=== PATIENT | male | born 1985 | race Caucasian/White ===

== ENCOUNTER 2018-06-21 23:06 | Inpatient (IN) | payer BC ==
[2018-06-22] MEDS ORDERED: IBUPROFEN 600 MG TAB PO STA (00:39)
[2018-06-22] MEDS ORDERED: SODIUM CHLORIDE 0.9% 1,000 ML IV STA ×2 (00:39)
[2018-06-22] MEDS ORDERED: ACETAMINOPHEN TAB 500 MG TAB PO STA (00:39)
[2018-06-22] MEDS ORDERED: cefTRIAXone 2,000 MG in SODIUM CHLORIDE 0.9% 100 ML IVPB STA (00:40)
[2018-06-22] MEDS ORDERED: VANCOMYCIN IV PER PHARMACY 1 EACH MISC MISCELLANE PRN (00:40)
--- NOTE | 2018-06-22 00:52 | ED ---
Skin/Abscess/FB HPI - General Chief complaint: Skin/Abscess/Foreign Body Stated complaint: Infection Time Seen by Provider: 06/22/18 00:32 Source: patient, RN notes reviewed, old records reviewed Mode of arrival: ambulatory Limitations: no limitations - History of Present Illness Initial comments: This is a 32-year-old male to the ER for evaluation presents today for evaluation regards to severe left middle finger pain, patient has no injury or trauma hand, he woke up with infection today some chills no significant fevers. Denies any pain left index finger with vasculitis and blood poisoning kind of extending up left arm. No medical history significant for immune deficiency or diabetes. MD complaint: other (Patient is significant left middle finger infection with surrounding edema, erythema) -: days(s) (1) Tetanus Up to Date: yes Location: L hand Severity scale (1-10): 9 Quality: aching Consistency: constant Improves with: none Worsens with: none Context: none Associated symptoms: chills Treatments Prior to Arrival: none - Related Data Home Medications Medication Instructions Recorded Confirmed No Known Home Medications 12/04/14 06/22/18 Allergies Allergy/AdvReac Type Severity Reaction Status Date / Time No Known Allergies Allergy Verified 06/22/18 08:22 Review of Systems ROS Statement: Those systems with pertinent positive or pertinent negative responses have been documented in the HPI. ROS Other: All systems not noted in ROS Statement are negative. Past Medical History Past Medical History: No Reported History Additional Past Medical History / Comment(s): Shingles History of Any Multi-Drug Resistant Organisms: None Reported Past Surgical History: No Surgical Hx Reported Additional Past Surgical History / Comment(s): Reconstructive jaw sx Past Psychological History: No Psychological Hx Reported Smoking Status: Never smoker Past Alcohol Use History: Occasional Past Drug Use History: None Reported - Past Family History Father Family Medical History: Hypertension Mother Family Medical History: Hypertension Additional Family Medical History / Comment(s): both maternal and paternal grandfathers have a history of coronary artery disease and cancer General Exam - General Exam Comments Initial Comments: Patient does have positive Knaval signs left middle finger Limitations: no limitations General appearance: alert, in no apparent distress Head exam: Present: atraumatic, normocephalic, normal inspection Eye exam: Present: normal appearance, PERRL, EOMI. Absent: scleral icterus, conjunctival injection, periorbital swelling ENT exam: Present: normal exam, mucous membranes moist Neck exam: Present: normal inspection. Absent: tenderness, meningismus, lymphadenopathy Respiratory exam: Present: normal lung sounds bilaterally. Absent: respiratory distress, wheezes, rales, rhonchi, stridor Cardiovascular Exam: Present: regular rate, normal rhythm, normal heart sounds. Absent: systolic murmur, diastolic murmur, rubs, gallop, clicks GI/Abdominal exam: Present: soft, normal bowel sounds. Absent: distended, tenderness, guarding, rebound, rigid Extremities exam: Present: normal inspection, full ROM, normal capillary refill. Absent: tenderness, pedal edema, joint swelling, calf tenderness Back exam: Present: normal inspection Neurological exam: Present: alert, oriented X3, CN II-XII intact Psychiatric exam: Present: normal affect, normal mood Skin exam: Present: warm, dry, intact, normal color. Absent: rash Course Vital Signs 06/22/18 06/22/18 06/22/18 00:11 01:12 02:50 Temperature 98.8 F 98.9 F Pulse Rate 105 H 95 90 Pulse Rate [ Pulse Oximetery ] Respiratory 18 18 17 Rate Blood Pressure 118/70 115/74 115/69 O2 Sat by Pulse 99 98 94 L Oximetry 06/22/18 03:10 Temperature Pulse Rate Pulse Rate [ 88 Pulse Oximetery ] Respiratory 16 Rate Blood Pressure O2 Sat by Pulse Oximetry - Reevaluation(s) Reevaluation #1: 06/22/18 01:06 Medical record is reviewed Patient has improved currently with pain control Medical Decision Making - Medical Decision Making 32 male the ER for evaluation significant finger cellulitis of possible flexor tenosynovitis, patient be admitted for IV antibiotics and orthopedic consultation - Lab Data Result diagrams: 06/22/18 01:01 06/22/18 01:01 Lab Results 06/22/18 06/22/18 06/22/18 Range/Units 01:01 01:01 01:01 WBC 15.9 H (3.8-10.6) k/uL RBC 5.21 (4.30-5.90) m/uL Hgb 15.8 (13.0-17.5) gm/dL Hct 45.4 (39.0-53.0) % MCV 87.3 (80.0-100.0) fL MCH 30.3 (25.0-35.0) pg MCHC 34.7 (31.0-37.0) g/dL RDW 12.7 (11.5-15.5) % Plt Count 225 (150-450) k/uL Neutrophils % 87 % Lymphocytes % 5 % Monocytes % 7 % Eosinophils % 0 % Basophils % 0 % Neutrophils # 13.8 H (1.3-7.7) k/uL Lymphocytes # 0.8 L (1.0-4.8) k/uL Monocytes # 1.1 H (0-1.0) k/uL Eosinophils # 0.0 (0-0.7) k/uL Basophils # 0.0 (0-0.2) k/uL PT (9.0-12.0) sec INR (<1.2) APTT (22.0-30.0) sec Sodium 139 (137-145) mmol/L Potassium 3.9 (3.5-5.1) mmol/L Chloride 104 (98-107) mmol/L Carbon Dioxide 23 (22-30) mmol/L Anion Gap 12 mmol/L BUN 17 (9-20) mg/dL Creatinine 0.83 (0.66-1.25) mg/dL Est GFR (CKD-EPI)AfAm >90 (>60 ml/min/1.73 sqM) Est GFR (CKD-EPI)NonAf >90 (>60 ml/min/1.73 sqM) Glucose 104 H (74-99) mg/dL Plasma Lactic Acid Devaughn (0.7-2.0) mmol/L Calcium 9.8 (8.4-10.2) mg/dL Phosphorus 2.6 (2.5-4.5) mg/dL Magnesium 1.9 (1.6-2.3) mg/dL Total Bilirubin 1.8 H (0.2-1.3) mg/dL AST 24 (17-59) U/L ALT 20 L (21-72) U/L Alkaline Phosphatase 56 (38-126) U/L Total Creatine Kinase 163 (55-170) U/L CK-MB (CK-2) 0.5 (0.0-2.4) ng/mL CK-MB (CK-2) Rel Index 0.3 Troponin I <0.012 (0.000-0.034) ng/mL Total Protein 8.3 H (6.3-8.2) g/dL Albumin 5.1 H (3.5-5.0) g/dL 06/22/18 06/22/18 Range/Units 01:01 02:20 WBC (3.8-10.6) k/uL RBC (4.30-5.90) m/uL Hgb (13.0-17.5) gm/dL Hct (39.0-53.0) % MCV (80.0-100.0) fL MCH (25.0-35.0) pg MCHC (31.0-37.0) g/dL RDW (11.5-15.5) % Plt Count (150-450) k/uL Neutrophils % % Lymphocytes % % Monocytes % % Eosinophils % % Basophils % % Neutrophils # (1.3-7.7) k/uL Lymphocytes # (1.0-4.8) k/uL Monocytes # (0-1.0) k/uL Eosinophils # (0-0.7) k/uL Basophils # (0-0.2) k/uL PT 11.2 (9.0-12.0) sec INR 1.2 H (<1.2) APTT 26.0 (22.0-30.0) sec Sodium (137-145) mmol/L Potassium (3.5-5.1) mmol/L Chloride (98-107) mmol/L Carbon Dioxide (22-30) mmol/L Anion Gap mmol/L BUN (9-20) mg/dL Creatinine (0.66-1.25) mg/dL Est GFR (CKD-EPI)AfAm (>60 ml/min/1.73 sqM) Est GFR (CKD-EPI)NonAf (>60 ml/min/1.73 sqM) Glucose (74-99) mg/dL Plasma Lactic Acid Devaughn 1.3 (0.7-2.0) mmol/L Calcium (8.4-10.2) mg/dL Phosphorus (2.5-4.5) mg/dL Magnesium (1.6-2.3) mg/dL Total Bilirubin (0.2-1.3) mg/dL AST (17-59) U/L ALT (21-72) U/L Alkaline Phosphatase (38-126) U/L Total Creatine Kinase (55-170) U/L CK-MB (CK-2) (0.0-2.4) ng/mL CK-MB (CK-2) Rel Index Troponin I (0.000-0.034) ng/mL Total Protein (6.3-8.2) g/dL Albumin (3.5-5.0) g/dL - EKG Data -: EKG Interpreted by Me (EKG shows sinus tachycardia rate 104, [place] 140, QRS 96, QTc 428) - Radiology Data Radiology results: report reviewed (X-ray hand is negative), image reviewed Disposition Clinical Impression: Finger infection Narrative: ro FlexorTenosynovitis Disposition: ADMITTED IP TO THIS [facility] Condition: Fair Is patient prescribed a controlled substance at d/c from ED?: No
[2018-06-22] MEDS ORDERED: VANCOMYCIN 1,750 MG in SODIUM CHLORIDE 0.9% 500 ML 500 ML IVPB ONE (01:00)
[2018-06-22 01:51] LABS: ALT 20 U/L (21-72); AST 24 U/L (17-59); Albumin 5.1 g/dL (3.5-5.0); Alkaline Phosphatase 56 U/L (38-126); Anion Gap 12 mmol/L; Blood Urea Nitrogen 17 mg/dL (9-20); Calcium 9.8 mg/dL (8.4-10.2); Carbon Dioxide 23 mmol/L (22-30); Chloride 104 mmol/L (98-107); Glucose 104 mg/dL (74-99); Magnesium 1.9 mg/dL (1.6-2.3); Phosphorus 2.6 mg/dL (2.5-4.5); Potassium 3.9 mmol/L (3.5-5.1); Sodium 139 mmol/L (137-145); Total Bilirubin 1.8 mg/dL (0.2-1.3); Total Protein 8.3 g/dL (6.3-8.2)
[2018-06-22 01:57] LABS: Basophils % (A) 0 %; Eosinophils % (A) 0 %; HCT 45.4 % (39.0-53.0); HGB 15.8 gm/dL (13.0-17.5); Lymphocytes # (A) 0.8 k/uL (1.0-4.8); Lymphocytes % (A) 5 %; MCH 30.3 pg (25.0-35.0); MCHC 34.7 g/dL (31.0-37.0); MCV 87.3 fL (80.0-100.0); Monocytes # (A) 1.1 k/uL (0-1.0); Monocytes % (A) 7 %; Neutrophils # (A) 13.8 k/uL (1.3-7.7); Neutrophils % (A) 87 %; Platelet Count 225 k/uL (150-450); RBC 5.21 m/uL (4.30-5.90); RDW 12.7 % (11.5-15.5); WBC 15.9 k/uL (3.8-10.6)
[2018-06-22 02:08] LABS: Creatine Kinase 163 U/L (55-170)
[2018-06-22 02:20] LABS: Creatine Kinase MB 0.5 ng/mL (0.0-2.4); Troponin I <0.012 ng/mL (0.000-0.034)
--- NOTE | 2018-06-22 02:22 | XR ---
EXAMINATION TYPE: XR hand complete LT DATE OF EXAM: 06/22/2018 COMPARISON: NONE HISTORY: Hand swelling TECHNIQUE: 3 views FINDINGS: Metacarpals are intact. I see no fracture nor dislocation. Joint spaces are normal. There a re no erosions. IMPRESSION: Negative left hand exam.
--- NOTE | 2018-06-22 02:23 | XR ---
EXAMINATION TYPE: XR chest 2V DATE OF EXAM: 06/22/2018 COMPARISON: NONE HISTORY: Weakness and dizziness TECHNIQUE: Frontal and lateral views of the chest are obtained. FINDINGS: Heart and mediastinum are normal. Lungs are clear. Diaphragm is normal. There are chest le ads. Bony thorax appears normal. IMPRESSION: Normal chest
[2018-06-22 02:42] LABS: INR 1.2 (<1.2); Prothrombin Time 11.2 sec (9.0-12.0)
[2018-06-22 04:25] VITALS: BMI 28.2
--- NOTE | 2018-06-22 09:26 | P.HPIM ---
History of Present Illness H&P Date: 06/22/18 Chief Complaint: left middle finger swelling and pain 32-year-old male with no previous significant medical history who presented to the emergency room with a chief complaint of left middle finger swelling, redness, and pain. 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 He denies trauma or injury to the area. He denies shortness of breath, chest pain, nausea, vomiting, fever, or chills. Chest x-ray was completed in the emergency room which was negative for acute cardiopulmonary process. X-ray of left hand was negative for a fracture or dislocation. Laboratory data upon admission revealed WBC 15.9. Hemoglobin 15.8. Platelet count 225. Sodium 139. Potassium 3.9. BUN 17. Creatinine 0.83. Glucose 104. Lactic acid 1.3. Magnesium 1.9. The patient was started on ceftriaxone and vancomycin and admitted to the hospital under the care of Dr. Jay. Consultations were placed to orthopedics. Review of Systems Those systems with pertinent positive or pertinent negative responses have been documented in the HPI Past Medical History Past Medical History: No Reported History Additional Past Medical History / Comment(s): Shingles History of Any Multi-Drug Resistant Organisms: None Reported Past Surgical History: No Surgical Hx Reported Additional Past Surgical History / Comment(s): Reconstructive jaw sx Past Anesthesia/Blood Transfusion Reactions: No Reported Reaction Past Psychological History: No Psychological Hx Reported Smoking Status: Never smoker Past Alcohol Use History: Occasional Past Drug Use History: None Reported - Past Family History Father Family Medical History: Hypertension Mother Family Medical History: Hypertension Additional Family Medical History / Comment(s): both maternal and paternal grandfathers have a history of coronary artery disease and cancer Medications and Allergies Home Medications Medication Instructions Recorded Confirmed Type No Known Home Medications 12/04/14 06/22/18 History Allergies Allergy/AdvReac Type Severity Reaction Status Date / Time No Known Allergies Allergy Verified 06/22/18 08:22 Physical Exam Vitals: Vital Signs Temp Pulse Pulse Resp BP BP Pulse Ox 06/22/18 07:10 97.6 F 67 18 102/59 98 06/22/18 04:00 98.9 F 88 16 115/66 92 L 06/22/18 03:10 88 16 06/22/18 02:50 98.9 F 90 17 115/69 94 L 06/22/18 01:12 95 18 115/74 98 06/22/18 00:11 98.8 F 105 H 18 118/70 99 Intake and Output 06/21/18 06/22/18 06/22/18 22:59 06:59 14:59 Intake Total 750 Balance 750 Intake: Intake, IV Titration 750 Amount Sodium Chloride 0.9% 1, 250 000 ml @ 100 mls/hr IV . Q10H STA Rx#:[id number] Vancomycin 1,750 mg In 500 Sodium Chloride 0.9% 500 ml 500 ml @ 167 mls/hr IVPB ONCE ONE Rx#: [id number] Other: Voiding Method Toilet # Voids 2 Weight 99.79 kg GENERAL: This is a 32-year-old male in no apparent distress at the time of examination. Pleasant and cooperative. HEENT: Head is atraumatic, normocephalic. Pupils are equal, round, and reactive to light. Sclerae anicteric. Conjunctivae are clear. Mucus membranes of the mouth are moist. Neck is supple. RESPIRATORY: Clear to auscultation. No wheezes, rales, or rhonchi. No use of accessory muscles. Patient maintaining oxygen saturation greater than 92%. No chest wall tenderness is noted on palpation or with deep breathing. CARDIOVASCULAR: Regular rate and rhythm. S1 and S2 noted. No systolic or diastolic murmur auscultated. No JVD noted. No S3 or S4 noted. GASTROINTESTINAL: No distention noted. Abdomen soft and round. Normal active bowel sounds auscultated x 4 quadrants. No pain or tenderness noted upon palpation. INTEGUMENTARY: Significant edema to left middle finger. No open wounds or cuts visible. Erythema of left middle finger extending to left hand with streaking extending into the left arm. No cyanosis. No jaundice. EXTREMITIES: 2+ peripheral pulses. No evidence of peripheral edema. No calf tenderness noted. NEUROLOGIC: Cranial nerves II-XII intact. PSYCHIATRIC: Awake, alert, and oriented X 3. Appropriate affect. Intact judgement and insight. Results CBC & Chem 7: 06/22/18 01:01 06/22/18 01:01 Labs: Abnormal Lab Results - Last 24 Hours (Table) 06/22/18 06/22/18 06/22/18 Range/Units 01:01 01:01 02:20 WBC 15.9 H (3.8-10.6) k/uL Neutrophils # 13.8 H (1.3-7.7) k/uL Lymphocytes # 0.8 L (1.0-4.8) k/uL Monocytes # 1.1 H (0-1.0) k/uL INR 1.2 H (<1.2) Glucose 104 H (74-99) mg/dL Total Bilirubin 1.8 H (0.2-1.3) mg/dL ALT 20 L (21-72) U/L Total Protein 8.3 H (6.3-8.2) g/dL Albumin 5.1 H (3.5-5.0) g/dL Thrombosis Risk Factor Assmnt - Choose All That Apply Any of the Below Risk Factors Present?: Yes Each Factor Represents 1 point: Obesity (BMI >25) Other Risk Factors: No Other congenital or acquired thrombophilia - If yes, enter type in comment: No Thrombosis Risk Factor Assessment Total Risk Factor Score: 1 Thrombosis Risk Factor Assessment Level: Low Risk Assessment and Plan Plan: ASSESSMENT: Left middle finger edema and erythema extending into left hand with streaking extending up left arm, without trauma or injury, suspect vasculitis PLAN: Orthopedics on consult. Await further recommendations and input Await results of blood cultures Elevate left upper extremity Continue antibiotics, currently on Vancomycin and Rocephin Monitor white count. CBC tomorrow If patient does not show improvement by tomorrow, will consult infectious disease for evaluation Home meds as appropriate Monitor labs Monitor vital signs and address as appropriate Discharge planning: Patient to return home when stable Further recommendations pending patient's course Please note that Dr. Burris's group will be covering for Dr. Jay beginning 06/23/2018 Nurse practitioner note has been reviewed by physician. Signing provider agrees with the documented findings, assessment, and plan of care.
[2018-06-22] MEDS: VANCOMYCIN 1,750 MG in SODIUM CHLORIDE 0.9% 500 ML 500 ML IVPB SCH ×2 (10:08→18:13)
--- NOTE | 2018-06-22 12:19 | P.CNOR ---
History of Present Illness - [facility] Consult date: 06/22/18 Consult reason: other History of present illness: Patient is a 32-year-old male who presented to the emergency room early this morning with regards to left middle finger swelling, redness and pain. Patient states he woke up yesterday pain, swelling and redness involving the left finger. Throughout most the day yesterday he noted worsening of the symptoms, and ranged into the dorsal aspect of the hand and also trended up the dorsal aspect of the wrist. He reports the hospital early this morning due to worsening pain and swelling. Patient denies any recent, to the left upper extremity, more specifically the hand and fingers. He states he does work at the [employer] in [place], he cannot remember any recent cuts to his hand. Patient is right-hand dominant. Patient was evaluated hip bedside, Dr. Johnson was present to examine the patient also. He is resting comfortably. He states that the pain in the left little finger has improved since yesterday. He was unable to make a fist yesterday, he is almost able to make a full fist today. He denies any pain, swelling or redness involving the other fingers. He denies any redness, swelling or pain involving the palmar aspect of the hand or wrist. Patient denies any previous orthopedic surgeon involving the left upper extremity. Review of Systems Constitutional: Reports as per [facility] Past Medical History Past Medical History: No Reported History Additional Past Medical History / Comment(s): Shingles History of Any Multi-Drug Resistant Organisms: None Reported Past Surgical History: No Surgical Hx Reported Additional Past Surgical History / Comment(s): Reconstructive jaw sx Past Anesthesia/Blood Transfusion Reactions: No Reported Reaction Past Psychological History: No Psychological Hx Reported Smoking Status: Never smoker Past Alcohol Use History: Occasional Past Drug Use History: None Reported - Past Family History Father Family Medical History: Hypertension Mother Family Medical History: Hypertension Additional Family Medical History / Comment(s): both maternal and paternal grandfathers have a history of coronary artery disease and cancer Medications and Allergies Home Medications Medication Instructions Recorded Confirmed Type No Known Home Medications 12/04/14 06/22/18 History Allergies Allergy/AdvReac Type Severity Reaction Status Date / Time No Known Allergies Allergy Verified 06/22/18 08:22 Physical Examination Left upper extremity: Obvious erythema and soft tissue swelling present involving the dorsal aspect of the left middle finger, this ranges from the PIP joint to the central region of the left hand in the third metacarpal region. There are no open lesions present, there is no scabs visualized in that region. There is slight erythema in the wrist area on the dorsal aspect, I'm unable to appreciate any redness proximal to that area. Passive motion of the finger reproduces minimal discomfort. No pain on the flexor aspect of the finger with flexion of the third digit. Sensory exam light touch throughout the left upper extremity is intact, his radial pulses 2+. Results - Labs Labs: Abnormal Lab Results - Last 24 Hours (Table) 06/22/18 06/22/18 06/22/18 Range/Units 01:01 01:01 02:20 WBC 15.9 H (3.8-10.6) k/uL Neutrophils # 13.8 H (1.3-7.7) k/uL Lymphocytes # 0.8 L (1.0-4.8) k/uL Monocytes # 1.1 H (0-1.0) k/uL INR 1.2 H (<1.2) Glucose 104 H (74-99) mg/dL Total Bilirubin 1.8 H (0.2-1.3) mg/dL ALT 20 L (21-72) U/L Total Protein 8.3 H (6.3-8.2) g/dL Albumin 5.1 H (3.5-5.0) g/dL H & H 06/22/18 Range/Units 01:01 Hgb 15.8 (13.0-17.5) gm/dL Hct 45.4 (39.0-53.0) % Coagulation 06/22/18 Range/Units 02:20 INR 1.2 H (<1.2) Result Diagrams: 06/22/18 01:01 06/22/18 01:01 - Diagnostic results Wrist/Hand x-ray: report reviewed, image reviewed Assessment and Plan Plan: Imagin views of the left hand were obtained and reviewed. Images demonstrated no acute fractures or dislocations. There is no obvious foreign bodies present on x-ray. Assessment: 1. Left dorsal middle finger/dorsal hand cellulitis 2. Possible left middle finger extensor tenosynovitis Plan: Dr. Johnson was available today to examine the patient with me and discuss treatment options with the patient. With the improvement noted overnight with IV antibiotics, we would like to continue with current treatment. Patient will be reevaluated the morning of 06/23/2018, if symptoms haven't improved, likely surgical intervention, more specifically an incision and drainage with irrigation and debridement. Patient will be made nothing by mouth after midnight tonight Continue IV antibiotics Medical recommendations Ice and elevate the left hand Further recommendations to follow Time with Patient: Less than 30
[2018-06-22 21:13] LABS: Appearance,Urine Cloudy (Clear); Bacteria,Urine Rare /hpf; Bilirubin,Urine Negative (Negative); Blood,Urine Negative (Negative); Budding Yeast,Urine Occasional /hpf; Color,Urine Yellow; Glucose,Urine (UA) Negative (Negative); Ketones,Urine Negative (Negative); Leukocyte Esterase,Urine Negative (Negative); Mucus,Urine Few /hpf; Nitrite,Urine Negative (Negative); PH, Urine 6.5 (5.0-8.0); Protein,Urine Negative (Negative); RBC,Urine 1 /hpf (0-5); Specific Gravity,Urine 1.017 (1.001-1.035); WBC,Urine 1 /hpf (0-5)
[2018-06-23] MEDS: VANCOMYCIN 1,750 MG in SODIUM CHLORIDE 0.9% 500 ML 500 ML IVPB SCH ×3 (01:43→17:36)
[2018-06-23] MEDS ORDERED: VANCOMYCIN TROUGH DUE 1 EACH MISC MISCELLANE ONE (09:00)
[2018-06-23] MEDS: KETOROLAC 30 MG/ML 1 ML VIAL IVP SCH ×2 (09:33→16:48)
[2018-06-23 09:41] LABS: Basophils # (A) 0.1 k/uL (0-0.2); Basophils % (A) 1 %; Eosinophils # (A) 0.1 k/uL (0-0.7); Eosinophils % (A) 2 %; HCT 40.1 % (39.0-53.0); HGB 13.5 gm/dL (13.0-17.5); Lymphocytes # (A) 1.4 k/uL (1.0-4.8); Lymphocytes % (A) 18 %; MCH 29.8 pg (25.0-35.0); MCHC 33.8 g/dL (31.0-37.0); MCV 88.2 fL (80.0-100.0); Mean Platelet Volume 6.6; Monocytes # (A) 0.6 k/uL (0-1.0); Monocytes % (A) 8 %; Neutrophils # (A) 5.3 k/uL (1.3-7.7); Neutrophils % (A) 70 %; Platelet Count 205 k/uL (150-450); RBC 4.55 m/uL (4.30-5.90); RDW 12.8 % (11.5-15.5); WBC 7.6 k/uL (3.8-10.6)
[2018-06-23 09:51] LABS: Anion Gap 7 mmol/L; Blood Urea Nitrogen 11 mg/dL (9-20); Carbon Dioxide 23 mmol/L (22-30); Chloride 110 mmol/L (98-107); Glucose 98 mg/dL (74-99); Potassium 3.9 mmol/L (3.5-5.1); Sodium 140 mmol/L (137-145)
--- NOTE | 2018-06-23 11:24 | P.PN ---
Subjective 32-year-old admitted secondary to left middle finger swelling redness and pain related to her cellulitis and tenosynovitis patient will undergo incision and drainage orthopedic surgery evaluated the patient patient is on Rocephin and vancomycin, Rocephin is being discontinued vancomycin will be continued. Patient's pain is fairly controlled with Toradol GI prophylaxis with Pepcid. Constitutional: Denied any fatigue denied any fever. Cardio vascular: denied any chest pain, palpitations Gastrointestinal denied any nausea vomiting Pulmonary: Denied any shortness of breath cough Neurologic denied any new focal deficits All inpatient medications were reviewed and appropriate changes in these medications as dictated in the interval history and assessment and plan. Objective - Vital Signs Vital signs: Vital Signs Temp 98.4 F 06/23/18 07:15 Pulse 81 06/23/18 07:15 Resp 18 06/23/18 07:15 BP 98/61 06/23/18 07:15 Pulse Ox 96 06/23/18 07:15 Intake & Output 06/22/18 06/23/18 06/23/18 18:59 06:59 18:59 Intake Total 1060 Balance 1060 Intake: Oral 860 Other 200 Other: Voiding Method Toilet Toilet # Voids 2 - Exam PHYSICAL EXAMINATION: GENERAL: The patient is alert and oriented x3, not in any acute distress. Well developed, well nourished. HEENT: Pupils are round and equally reacting to light. EOMI. No scleral icterus. No conjunctival pallor. Normocephalic, atraumatic. No pharyngeal erythema. No thyromegaly. CARDIOVASCULAR: S1 and S2 present. No murmurs, rubs, or gallops. PULMONARY: Chest is clear to auscultation, no wheezing or crackles. ABDOMEN: Soft, nontender, nondistended, normoactive bowel sounds. No palpable organomegaly. MUSCULOSKELETAL: Swelling in left middle finger, with redness local is of temperature and tenderness restricted movements of the proximal interphalangeal joint because of pain EXTREMITIES: No cyanosis, clubbing, or pedal edema. NEUROLOGICAL: Gross neurological examination did not reveal any focal deficits. SKIN: No rashes. - Labs CBC & Chem 7: 06/23/18 09:05 06/23/18 09:05 Labs: Abnormal Lab Results - Last 24 Hours (Table) 11/14/18 11/15/18 Range/Units 19:25 09:05 Chloride 110 H (98-107) mmol/L Urine Bacteria Rare H (None) /hpf Urine Mucus Few H (None) /hpf Urine Yeast (Budding) Occasional H (None) /hpf Microbiology - Last 24 Hours (Table) 06/22/18 01:01 Blood Culture - Preliminary Blood No Growth after 24 hours Assessment and Plan Plan: -Cellulitis of the left middle finger -Tenosynovitis of the extensor tendons of the left middle finger. Plan continue with antibiotics continue with GI prophylaxis and pain management as mentioned above.
[2018-06-23] MEDS: FAMOTIDINE 20 MG TAB PO SCH ×2 (12:25→22:16)
[2018-06-23] MEDS ORDERED: IV FLUID CONTINUATION 1,000 ML IV ONE (15:14)
[2018-06-23] MEDS ORDERED: MIDAZOLAM 2 MG/2 ML VIAL ONE (15:22)
[2018-06-23] MEDS ORDERED: fentaNYL (PF) 50 MCG/ML 2 ML AMP ONE (15:22)
[2018-06-23] MEDS ORDERED: KETAMINE 10 MG/ML 20 ML VIAL ONE (15:22)
[2018-06-23] MEDS ORDERED: LIDOCAINE 1% INJ 10MG/ML (20 ML MDV) ONE (15:22)
[2018-06-23] MEDS ORDERED: PROPOFOL 10 MG/ML 20 ML VIAL IV ONE (15:22)
--- NOTE | 2018-06-23 15:49 | P.OP ---
Date of Procedure: 06/23/18 Preoperative Diagnosis: Left hand cellulitis Postoperative Diagnosis: Same Procedure(s) Performed: Incision with irrigation left hand Anesthesia: ARI Surgeon: Srinivas Johnson Contract Manager #1: Jackson Matthews Estimated Blood Loss (ml): 3 Pathology: none sent Condition: stable Disposition: PACU Indications for Procedure: 32-year-old patient seen with left hand cellulitis which did not improve with initial IV antibiotics. I recommend incision with possible irrigation debridement. He was agreeable consent was obtained. Operative Findings: see description of procedure Description of Procedure: Patient was taken to the operative suite. Patient underwent a general anesthetic by the department of anesthesia. A well-padded tourniquet was placed proximal left upper extremity. The left upper extremity was prepped and draped in the normal sterile orthopedic fashion. The tourniquet was insufflated to 250. I made a 4 cm incision on the dorsum of the left hand. We dissected down to the extensor tendon area. I explored the area thoroughly irrigated any evidence for any infective T no synovitis or any evidence for abscess. After thorough exploration of the wound we irrigated out copiously with normal saline. I approximated the skin margins with nylon suture. Sterile dressings were applied. Sterile web bone Zhao bandage were applied. The tourniquet was released with immediate capillary noted. The patient was then awakened, transferred to a bed and recovery stable condition. Sudhir BOWLES assisted with the irrigation and closure and dressings.
[2018-06-23] MEDS ORDERED: HYDROcodone/APAP 5-325MG 1 EACH TAB PO PRN (16:08)
[2018-06-24] MEDS: KETOROLAC 30 MG/ML 1 ML VIAL IVP SCH ×4 (00:01→17:26)
[2018-06-24] MEDS: VANCOMYCIN 1,750 MG in SODIUM CHLORIDE 0.9% 500 ML 500 ML IVPB SCH ×3 (03:52→17:24)
[2018-06-24 08:49] LABS: Anion Gap 7 mmol/L; Blood Urea Nitrogen 18 mg/dL (9-20); Calcium 8.8 mg/dL (8.4-10.2); Carbon Dioxide 22 mmol/L (22-30); Chloride 113 mmol/L (98-107); Glucose 98 mg/dL (74-99); Potassium 4.4 mmol/L (3.5-5.1); Sodium 142 mmol/L (137-145)
[2018-06-24] MEDS: FAMOTIDINE 20 MG TAB PO SCH ×2 (09:38→21:10)
--- NOTE | 2018-06-24 11:49 | P.PN ---
Subjective Progress Note Date: 06/24/18 Principal diagnosis: Status post I&D left hand Patient is seen today resting in his hospital bed, he appears comfortable. His pain is well-controlled. He denies any increased pain involving the left hand. He denies any acute fevers or chills. Objective - Vital Signs Vital signs: Vital Signs Temp 97.6 F 06/24/18 07:26 Pulse 65 06/24/18 07:26 Resp 16 06/24/18 07:26 BP 117/79 06/24/18 07:26 Pulse Ox 98 06/24/18 07:26 Intake & Output 06/23/18 06/24/18 06/24/18 18:59 06:59 18:59 Intake Total 450 1490 Balance 450 1490 Weight 99.79 kg Intake: IV 450 Intake, IV Titration 900 Amount IV Fluid Continuation 1, 400 000 ml @ 0 mls/hr IV .STK -[facility] Rx#:[id number] Vancomycin 1,750 mg In 500 Sodium Chloride 0.9% 500 ml 500 ml @ 167 mls/hr IVPB Q8H [facility] Rx#: [id number] Oral 590 Other: Voiding Method Toilet Toilet Toilet # Voids 1 - Exam Left upper extremity: Initial postop bandage in good position and condition, I was able to visualize the incision. Emily are all in good position. There is no active drainage. Soft tissue swelling involving the left little finger and erythema has improved. Passive and active range of motion of the finger and hand reproduced no significant increase in pain. Sensation to light touch throughout the extremity is intact. - Labs CBC & Chem 7: 06/23/18 09:05 06/24/18 07:37 Labs: Abnormal Lab Results - Last 24 Hours (Table) 06/24/18 Range/Units 07:37 Chloride 113 H (98-107) mmol/L Microbiology - Last 24 Hours (Table) 06/23/18 15:49 Gram Stain - Preliminary Hand - Left Wound Culture - Preliminary 06/22/18 01:01 Blood Culture - Preliminary Blood No Growth after 48 hours Assessment and Plan Plan: Assessment: 1. Postop day #1 status post I&D left hand 2. Left hand cellulitis Plan: Patient symptoms have continued to improve with current treatment. No extensive infection or abscess formation was appreciated at surgery Recommend daily dressing changes, wound care was discussed with patient, this including activity restriction Medical recommendations with regards to outpatient antibiotics Patient is cleared via the orthopedic standpoint for discharge to home, plan for follow-up in 2 weeks for recheck of hand Time with Patient: Less than 30
[2018-06-25] MEDS: KETOROLAC 30 MG/ML 1 ML VIAL IVP SCH ×3 (00:41→13:11)
--- NOTE | 2018-06-25 01:09 | P.PN ---
Subjective Progress Note Date: 06/24/18 Principal diagnosis: Left hand middle finger tenosynovitis and surrounding cellulitis 32-year-old admitted secondary to left middle finger swelling redness and pain related to her cellulitis and tenosynovitis patient will undergo incision and drainage orthopedic surgery evaluated the patient patient is on Rocephin and vancomycin, Rocephin is being discontinued vancomycin will be continued. Patient's pain is fairly controlled with Toradol GI prophylaxis with Pepcid. 06/24/2018 Patient denied any complaints of chest pain or shortness of breath. No fever no chills. Left hand is still swollen and not able to flex completely. Would recommend continue with IV antibiotics for one more day. No other acute overnight issues. Patient is status post I&D. No purulence noted during surgery. Constitutional: Denied any fatigue denied any fever. Cardio vascular: denied any chest pain, palpitations Gastrointestinal denied any nausea vomiting Pulmonary: Denied any shortness of breath cough Neurologic denied any new focal deficits All inpatient medications were reviewed and appropriate changes in these medications as dictated in the interval history and assessment and plan. Objective - Vital Signs Vital signs: Vital Signs Temp 97.6 F 06/24/18 07:26 Pulse 65 06/24/18 07:26 Resp 16 06/24/18 07:26 BP 117/79 06/24/18 07:26 Pulse Ox 98 06/24/18 07:26 Intake & Output 06/23/18 06/24/18 06/24/18 18:59 06:59 18:59 Intake Total 450 1490 Balance 450 1490 Weight 99.79 kg Intake: IV 450 Intake, IV Titration 900 Amount IV Fluid Continuation 1, 400 000 ml @ 0 mls/hr IV .STK -[facility] Rx#:[id number] Vancomycin 1,750 mg In 500 Sodium Chloride 0.9% 500 ml 500 ml @ 167 mls/hr IVPB Q8H [facility] Rx#: [id number] Oral 590 Other: Voiding Method Toilet Toilet Toilet # Voids 1 - Exam GENERAL: The patient is alert and oriented x3, not in any acute distress. Well developed, well nourished. HEENT: Pupils are round and equally reacting to light. EOMI. No scleral icterus. No conjunctival pallor. Normocephalic, atraumatic. No pharyngeal erythema. No thyromegaly. CARDIOVASCULAR: S1 and S2 present. No murmurs, rubs, or gallops. PULMONARY: Chest is clear to auscultation, no wheezing or crackles. ABDOMEN: Soft, nontender, nondistended, normoactive bowel sounds. No palpable organomegaly. MUSCULOSKELETAL: Swelling in left middle finger, with redness local is of temperature and tenderness restricted movements of the proximal interphalangeal joint because of pain EXTREMITIES: No cyanosis, clubbing, or pedal edema. NEUROLOGICAL: Gross neurological examination did not reveal any focal deficits. SKIN: No rashes. - Labs CBC & Chem 7: 06/23/18 09:05 06/24/18 07:37 Labs: Abnormal Lab Results - Last 24 Hours (Table) 06/24/18 Range/Units 07:37 Chloride 113 H (98-107) mmol/L Microbiology - Last 24 Hours (Table) 06/23/18 15:49 Gram Stain - Preliminary Hand - Left Wound Culture - Preliminary 06/22/18 01:01 Blood Culture - Preliminary Blood No Growth after 48 hours Assessment and Plan Assessment: -Cellulitis of the left middle finger -Tenosynovitis of the extensor tendons of the left middle finger. Plan continue with antibiotics continue with GI prophylaxis and pain management as mentioned above. Time with Patient: Greater than 30
[2018-06-25] MEDS: VANCOMYCIN 1,750 MG in SODIUM CHLORIDE 0.9% 500 ML 500 ML IVPB SCH ×2 (03:29→11:10)
[2018-06-25] MEDS: FAMOTIDINE 20 MG TAB PO SCH (07:53)
[2018-06-25 07:56] VITALS: RESP 16
[2018-06-25] MEDS ORDERED: VANCOMYCIN TROUGH DUE 1 EACH MISC MISCELLANE ONE ×2 (09:00→17:00)
[2018-06-25 09:28] LABS: Anion Gap 11 mmol/L; Blood Urea Nitrogen 16 mg/dL (9-20); Calcium 8.8 mg/dL (8.4-10.2); Carbon Dioxide 22 mmol/L (22-30); Chloride 107 mmol/L (98-107); Glucose 91 mg/dL (74-99); Potassium 4.3 mmol/L (3.5-5.1); Sodium 140 mmol/L (137-145)
[2018-06-25 14:18] VITALS: BP 123/75; PULSE 57; TEMP 98.7
--- NOTE | 2018-06-28 17:54 | P.DS ---
Providers Date of admission: 06/23/18 14:04 Expected date of discharge: 06/25/18 Attending physician: Brian Jay Consults: 06/22/18 02:36 Consult Physician Routine Consulting Provider: Srinivas Johnson Consult Reason/Comments: fingerInfection Do you want consulting provider notified?: Yes Primary care physician: Brian Jay Hospital Course: Discharge diagnosis -Cellulitis of the left middle finger. Status post I&D. No evidence of pus noted. -Tenosynovitis of the extensor tendons of the left middle finger. Hospital course 32-year-old admitted secondary to left middle finger swelling redness and pain related to her cellulitis and tenosynovitis patient will undergo incision and drainage orthopedic surgery evaluated the patient patient is on Rocephin and vancomycin, Rocephin was discontinued vancomycin will be continued. Patient's pain is fairly controlled with Toradol GI prophylaxis with Pepcid. 06/24/2018 Patient denied any complaints of chest pain or shortness of breath. No fever no chills. Left hand is still swollen and not able to flex completely. Would recommend continue with IV antibiotics for one more day. No other acute overnight issues. Patient is status post I&D. No purulence noted during surgery. 06/25/2018 Patient did have improved left hand swelling. No fever chills. No acute overnight issues. I&D Wound is healing well on the dorsum of hand. No other acute overnight issues. Wound culture showed no growth. Patient is stable to be discharged home. No history of MRSA. Patient was continued on antibiotics in the form of Keflex as an outpatient. Discharge physical examination was done and vitals reviewed. Patient Condition at Discharge: Fair Plan - Discharge Summary Discharge Rx Participant: No New Discharge Prescriptions: New Cephalexin [Keflex] 500 mg PO Q8HR 5 Days #15 cap Discharge Medication List Cephalexin [Keflex] 500 mg PO Q8HR 5 Days #15 cap 06/25/18 [Rx] Follow up Appointment(s)/Referral(s): Brian Jay DO [Primary Care Provider] - 1-2 days Jackson Matthews PAC [[employer]] - 2 Weeks Activity/Diet/Wound Care/Special Instructions: Discharge instructions: 1. Daily dressing changes 2. Keep incision covered and dry 3. Keep incision covered and dry while showering 4. Do not remove stitches 5. Basic range of motion exercises with anaerobic, limit excessive use 6. [facility]up at [facility] 2 weeks Discharge Disposition: HOME SELF-CARE
== END 2018-06-25 15:19 | disposition home or self-care (01) | DRG 514 ==
LOC: EC 23:06 → 1SOBS 06-22 02:36 → OBSVTOIN 06-23 14:04 → 4SSUR 06-23 15:52
PROVIDERS: ADMIT Family Medicine; ATTEND Family Medicine
PROC: 0L980ZZ Drainage of Left Hand Tendon, Open Approach (ICD-10-PCS; principal; 2018-06-23 15:30)
DX: M65.9 Synovitis and tenosynovitis, unspecified (principal); L03.012 Cellulitis of left finger; Z82.49 Family history of ischemic heart disease and other diseases of the circulatory system
CPT/HCPCS: 36415; 71046; 80048; 80053; 80202; 81001; 82550; 82553; 83605; 83735; 84100; 84484; 85025; 85610; 85730; 87040; 87070; 87205; 93005; 96365; 96367; 99285